=== PATIENT | female | born 1950 | race Caucasian/White ===

== ENCOUNTER 2020-05-14 21:31 | Observation (INO) | payer MEDICARE ==
[~2020-05-14] VITALS: Ht 165.1 cm; Wt 94.8 kg
[2020-05-14] MEDS ORDERED: PRAVACHOL20 MG PO (21:48)
[2020-05-14] MEDS ORDERED: ZOLOFT50 MG PO (21:48)
[2020-05-14] MEDS ORDERED: LISINOPRIL10 MG PO (21:48)
[2020-05-14] MEDS ORDERED: ASPIRIN81 MG PO (21:48)
[2020-05-14] MEDS ORDERED: SYMBICORT 16010.2 GM (21:48)
[2020-05-14] MEDS ORDERED: ALBUTEROL0.63 MG/3 (21:48)
[2020-05-14] MEDS ORDERED: CILOSTAZOL50 MG PO (21:48)
[2020-05-14] MEDS ORDERED: CLOPIDOGREL75 MG PO (21:48)
[2020-05-14] MEDS ORDERED: CEFEPIME 1GM/NS 0.9% 50 ML 50 ML IV STA (21:53)
[2020-05-14] MEDS ORDERED: SODIUM CHLORIDE 0.9% 1000ML 1,000 ML IV STA ×2 (21:53→23:34)
[2020-05-14 21:59] LABS: BASOPHILS % 0.2 % (0.0-1.0); EOSINOPHILS % 0.1 % (0.0-6.0); HEMATOCRIT 42.3 % (34.2-44.1); HEMOGLOBIN 13.3 g/dL (12.0-16.0); LYMPHOCYTES # (AUTO) 1.5 (1.0-3.2); LYMPHOCYTES % 8.1 % (18.0-39.1); MEAN CORPUSCULAR HEMOGLOBIN 28.2 pg (28-32); MEAN CORPUSCULAR HGB CONC 31.4 g/dL (31-35); MEAN CORPUSCULAR VOLUME 89.8 fL (81-99); MONOCYTES # (AUTO) 0.9 (0.2-0.8); MONOCYTES % 4.9 % (4.4-11.3); NEUTROPHILS # (AUTO) 16.1 (2.1-6.9); NEUTROPHILS % 86.2 % (38.7-80.0); PLATELET COUNT 433 x10e3/uL (140-360); RED BLOOD COUNT 4.71 x10e6/uL (3.6-5.1); RED CELL DISTRIBUTION WIDTH 14.6 % (11.7-14.4)
[2020-05-14] MEDS ORDERED: ASPIRIN 81 MG CHEW TAB PO ONE (22:00)
[2020-05-14 22:01] LABS: BILIRUBIN,URINE SMALL (NEGATIVE); CLARITY,URINE SL CLOUDY (CLEAR); COLOR,URINE YELLOW (YELLOW); KETONES,URINE TRACE (NEGATIVE); LEUKOCYTE ESTERASE ,URINE NEGATIVE (NEGATIVE); NITRITE,URINE NEGATIVE (NEGATIVE); PROTEIN,URINE DIPSTICK NEGATIVE (NEGATIVE); URINE UROBILINOGEN 0.2 mg/dL (0.2 - 1)
[2020-05-14 22:12] LABS: AMORPHOUS SEDIMENT,URINE FEW (FEW); BACTERIA,URINE FEW /HPF; EPITHELIAL CELLS,URINE MODERATE /LPF; RBC,URINE 0-5 /HPF (0-5); WBC,URINE (MAN) 0-5 /HPF (0-5)
[2020-05-14] MEDS ORDERED: ONDANSETRON HCL INJ 2MG/ML 2ML 2 MG/ML VIAL IV STA (22:12)
[2020-05-14] MEDS ORDERED: MORPHINE SULFATE INJ 4 MG/ML INJ 1ML IV ONE (22:15)
[2020-05-14 22:19] LABS: ALANINE AMINOTRANSFERASE 13 IU/L (0-55); ALBUMIN 3.9 g/dL (3.5-5.0); ALBUMIN/GLOBULIN RATIO 1.1 (0.8-2.0); ALKALINE PHOSPHATASE 97 IU/L (40-150); ANION GAP 16.9 mmol/L (8-16); BLOOD UREA NITROGEN 12 mg/dL (7-26); BUN/CREATININE RATIO 16 (6-25); CALCIUM 9.6 mg/dL (8.4-10.2); CARBON DIOXIDE 24 mmol/L (22-29); CHLORIDE 102 mmol/L (98-107); CREATINE KINASE 58 IU/L (29-168); CREATININE, SERUM 0.75 mg/dL (0.57-1.11); EST GLOMERULAR FILTRATION RATE > 60 ML/MIN (60-); GLUCOSE 140 mg/dL (74-118); POTASSIUM 3.9 mmol/L (3.5-5.1); SODIUM 139 mmol/L (136-145)
--- NOTE | 2020-05-14 22:37 | Emergency Department Note ---
History of Present Illnes History of Present Illness Chief Complaint: Sepsis History of Present Illness This is a 69 year old female arrived to the ED with left lower quadrant abdominal pain. Historian: Patient Arrival Mode: Car Onset (how long ago): day(s) Onset quality: sudden Duration (how long): day(s) Timing of current episode: constant Progression: worsening Chronicity: new Past Medical/Family History Physician Review I have reviewed the patient's past medical and family history. Any updates have been documented here. Past Medical History Recent Fever: No Clinical Suspicion of Infectio: No New/Unexplained Change in Ment: No Past Medical History: Hypertension, COPD, Hyperlipedemia, DVT/PE Other Medical History: DVT IN RT GREATER TOE Past Surgical History: Hysterectomy Review of Systems Review of Systems Constitutional: Reports no symptoms EENTM: Reports no symptoms Cardiovascular: Reports no symptoms Respiratory: Reports no symptoms Gastrointestinal: Reports as per HPI Genitourinary: Reports no symptoms Musculoskeletal: Reports no symptoms Integumentary: Reports no symptoms Neurological: Reports no symptoms Psychological: Reports no symptoms Endocrine: Reports no symptoms Hematological/Lymphatic: Reports no symptoms Physical Exam Related Data Allergies: Coded Allergies: codeine (Verified Allergy, Unknown, RASH, 05/14/20) pentazocine (Verified Allergy, Unknown, 05/14/20) Triage Vital Signs Vital Signs Date Time Temp Pulse Resp B/P (MAP) Pulse Ox O2 Delivery O2 Flow Rate FiO2 05/14/20 21:36 98.3 119 22 162/79 97 Room Air Vital signs reviewed: Yes Physical Exam CONSTITUTIONAL Constitutional: Present well-developed, Present well-nourished HENT HENT: Present normocephalic, Present atraumatic, Present oropharynx clear/moist, Present nose normal HENT L/R: Present left ext ear normal, Present right ext ear normal EYES Eyes: Reports PERRL, Reports conjunctivae normal NECK Neck: Present ROM normal PULMONARY Pulmonary: Present effort normal, Present breath sounds normal CARDIOVASCULAR Cardiovascular: Present regular rhythm, Present heart sounds normal, Present capillary refill normal, Present normal rate GASTROINTESTINAL Abdominal: Present soft, Present bowel sounds normal, Present tender GENITOURINARY Genitourinary: Present exam deferred SKIN Skin: Present warm, Present dry MUSCULOSKELETAL Musculoskeletal: Present ROM normal NEUROLOGICAL Neurological: Present alert, Present oriented x 3, Present no gross motor or sensory deficits PSYCHOLOGICAL Psychological: Present mood/affect normal, Present judgement normal Results Laboratory Result Diagram: 05/14/20213905/14/202139 Laboratory Laboratory Tests Test 05/14/20 21:40 White Blood Count 18.68 x10e3/uL (4.8-10.8) Red Blood Count 4.71 x10e6/uL (3.6-5.1) Hemoglobin 13.3 g/dL (12.0-16.0) Hematocrit 42.3 % (34.2-44.1) Mean Corpuscular Volume 89.8 fL (81-99) Mean Corpuscular Hemoglobin 28.2 pg (28-32) Mean Corpuscular Hemoglobin Concent 31.4 g/dL (31-35) Red Cell Distribution Width 14.6 % (11.7-14.4) Platelet Count 433 x10e3/uL (140-360) Neutrophils (%) (Auto) 86.2 % (38.7-80.0) Lymphocytes (%) (Auto) 8.1 % (18.0-39.1) Monocytes (%) (Auto) 4.9 % (4.4-11.3) Eosinophils (%) (Auto) 0.1 % (0.0-6.0) Basophils (%) (Auto) 0.2 % (0.0-1.0) Neutrophils # (Auto) 16.1 (2.1-6.9) Lymphocytes # (Auto) 1.5 (1.0-3.2) Monocytes # (Auto) 0.9 (0.2-0.8) Eosinophils # (Auto) 0.0 (0.0-0.4) Basophils # (Auto) 0.0 (0.0-0.1) Absolute Immature Granulocyte (auto 0.09 x10e3/uL (0-0.1) Urine Color Yellow (YELLOW) Urine Clarity Sl cloudy (CLEAR) Urine pH 5 (5 - 7) Urine Specific Amity 1.030 (1.010-1.025) Urine Protein Negative (NEGATIVE) Urine Glucose (UA) Negative (NEGATIVE) Urine Ketones Trace (NEGATIVE) Urine Blood Trace (NEGATIVE) Urine Nitrite Negative (NEGATIVE) Urine Bilirubin Small (NEGATIVE) Urine Urobilinogen 0.2 mg/dL (0.2 - 1) Urine Leukocyte Esterase Negative (NEGATIVE) Urine RBC 0-5 /HPF (0-5) Urine WBC 0-5 /HPF (0-5) Urine Epithelial Cells Moderate /LPF (NONE) Urine Amorphous Sediment Few (FEW) Urine Bacteria Few /HPF (NONE) Sodium Level 139 mmol/L (136-145) Potassium Level 3.9 mmol/L (3.5-5.1) Chloride Level 102 mmol/L (98-107) Carbon Dioxide Level 24 mmol/L (22-29) Anion Gap 16.9 mmol/L (8-16) Blood Urea Nitrogen 12 mg/dL (7-26) Creatinine 0.75 mg/dL (0.57-1.11) Estimat Glomerular Filtration Rate > 60 ML/MIN (60-) BUN/Creatinine Ratio 16 (6-25) Glucose Level 140 mg/dL (74-118) Lactic Acid Level 1.3 mmol/L (0.5-2.0) Calcium Level 9.6 mg/dL (8.4-10.2) Total Bilirubin 0.4 mg/dL (0.2-1.2) Aspartate Amino Transf (AST/SGOT) 10 IU/L (5-34) Alanine Aminotransferase (ALT/SGPT) 13 IU/L (0-55) Alkaline Phosphatase 97 IU/L (40-150) Creatine Kinase 58 IU/L (29-168) Creatine Kinase MB 1.10 ng/mL (0-5.0) Troponin I < 0.001 ng/mL (0-0.300) Total Protein 7.6 g/dL (6.5-8.1) Albumin 3.9 g/dL (3.5-5.0) Globulin 3.7 g/dL (2.3-3.5) Albumin/Globulin Ratio 1.1 (0.8-2.0) Lipase 16 U/L (8-78) Lab results reviewed: Yes Imaging Imaging results reviewed: Yes Impressions IMPRESSION: Acute appendicitis. No evidence of perforation or abscess formation. Findings discussed with Dr. Wooten at 11:13 PM, on 05/14/2020. Signed by: Dr. Omar Butler MD on 05/14/2020 11:14 PM Assessment & Plan Medical Decision Making MDM 61-year-old female arrived to the ED with left lower quadrant abdominal pain radiating to the right side. Elevated wbc's noted, patient given doses cefepime in the ED. Patient CT findings consistent with acute appendicitis. Dr. Luiz Maravilla informed and patient was admitted to the hospital for further workup and management. Patient was kept nothing by mouth and 1 doses cefepime given pr ior to admission. Assessment & Plan Final Impression: (1) Acute appendicitis Depart Disposition: ADMITTED Last Vital Signs Date Time Temp Pulse Resp B/P (MAP) Pulse Ox O2 Delivery O2 Flow Rate FiO2 05/14/20 21:52 107 22 168/79 98 Room Air 05/14/20 21:36 98.3 Home Meds Reported Medications Albuterol Sulfate (ALBUTEROL SULFATE) 0.63 Mg/3 Ml Vial.neb 05/14/20 Budesonide/Formoterol Fumarate (SYMBICORT 160-4.5 MCG INHALER) 10.2 Gm Hfa.aer.ad 05/14/20 Pravastatin Sodium (PRAVACHOL) 20 Mg Tablet, 20 MG PO HS, TAB 05/14/20 Aspirin (ASPIRIN) 81 Mg Tab.chew, 81 MG PO DAILY 05/14/20 Cilostazol (CILOSTAZOL) 50 Mg Tablet, 50 MG PO BID, TAB 05/14/20 Sertraline Hcl (ZOLOFT) 50 Mg Tablet, 25 MG PO DAILY, #30 TAB 05/14/20 Lisinopril (LISINOPRIL) 10 Mg Tablet, 10 MG PO DAILY, #30 TAB 05/14/20 Clopidogrel Bisulfate (CLOPIDOGREL) 75 Mg Tablet, 75 MG PO DAILY, #30 TAB 05/14/20 Medications in the ED Aspirin 81 mg PRN ONCE PO ; Start 05/14/20 at 22:00; Stop 05/14/20 at 22:01; Status DC Sodium Chloride 1,000 ml @ 0 mls/hr Q0M STAT IV Last administered on 05/14/20at 22:05; Admin Dose 999 MLS/HR; Start 05/14/20 at 21:53; Stop 05/14/20 at 21:58; Status DC Cefepime HCl 50 ml @ 100 mls/hr Q24H STAT IV Last administered on 05/14/20at 22:05; Admin Dose 100 MLS/HR; Start 05/14/20 at 21:53; Stop 05/14/20 at 22:22; Status DC Ondansetron HCl 4 mg NOW STAT IV ; Start 10/15/20 at 22:12; Stop 05/14/20 at 22:14; Status DC Morphine Sulfate 4 mg ONCE ONCE IV ; Start 05/14/20 at 22:15; Stop 05/14/20 at 22:16; Status DC JONNY WOOTEN DO May 14, 2020 22:37
[2020-05-14] MEDS ORDERED: SODIUM CHLORIDE 0.9% 50ML 50 ML ONE (22:55)
[2020-05-14] MEDS ORDERED: IOPAMIDOL 370 MG/ML 200 ML INFUS..BTL INJ ONE (22:55)
--- NOTE | 2020-05-14 23:17 | Diagnostic Imaging Report ---
EXAM: CT Abdomen and Pelvis WITH contrast INDICATION: ^Y ^ABD PAIN ^20200514 ^[id number] COMPARISON: None. TECHNIQUE: Abdomen and pelvis were scanned utilizing a multidetector helical scanner from the lung base to the pubic symphysis after administration of IV contrast. Coronal and sagittal reformations were obtained. Dose modulation, iterative reconstruction, and/or weight based adjustment of the mA/kV was utilized to reduce the radiation dose to as low as reasonably achievable. Routine protocol was performed. Scan was performed when during portal venous phase. IV CONTRAST: 100 mL of Isovue-370 ORAL CONTRAST: None COMPLICATIONS: None RADIATION DOSE: Total DLP: 808.69 mGy*cm Estimated effective dose: (DLP x 0.015 x size factor) mSv CTDIvol has been reviewed. It is below the limits set by the Radiation Protocol Committee (RPC). FINDINGS: LINES and TUBES: None. LOWER THORAX: Unremarkable HEPATOBILIARY: No focal hepatic lesions. No biliary ductal dilation. GALLBLADDER: No radio-opaque stones or sludge. No wall thickening. SPLEEN: No splenomegaly. PANCREAS: No focal masses or ductal dilatation. ADRENALS: No adrenal nodules KIDNEYS/URETERS: Kidneys enhance symmetrically. No hydronephrosis. No cystic or solid mass lesions. No stones. GI TRACT: No abnormal distention, wall thickening, or evidence of bowel obstruction. Appendix is distended up to 1.5 cm, demonstrating mild surrounding inflammation. PELVIC ORGANS/BLADDER: Unremarkable. LYMPH NODES: No lymphadenopathy. VESSELS: There is moderate atherosclerotic disease in the aorta and major arterial branches. PERITONEUM / RETROPERITONEUM: No free air or fluid. BONES: Minimal retrolisthesis of L5 in relation to L4. SOFT TISSUES: Unremarkable. IMPRESSION: Acute appendicitis. No evidence of perforation or abscess formation. Findings discussed with Dr. Sanchez at 11:13 PM, on 05/14/2020. Signed by: Dr. Omar Butler MD on 05/14/2020 11:14 PM
[2020-05-14] MEDS ORDERED: ONDANSETRON HCL INJ 2MG/ML 2ML 2 MG/ML VIAL IV PRN (23:30)
--- OUTSIDE RECORDS SUMMARY | 2020-05-14 23:38 | XMS REPORT | Continuity of Care Document ---
Author Author [facility] t Organization [facility] Address [address] [place] [address] [place] [phone] Phone Unavailable Care Team Providers Care Mini Shifter Name Role Phone Kriss WOOTEN Unavailable Problems This patient has no known problems. Allergies, Adverse Reactions, Alerts This patient has no known allergies or adverse reactions. Medications This patient has no known medications. Procedures This patient has no known procedures. Results Test Description Test Time Test Comments Results Result Comments Source CT ABDOMEN/PELVIS W 2020-05-14 23:03:00 [facility] 1950 Sex: F [facility] [address] [place] [address] Patient Name: JAZMINE DONNELLY MR #: [id number] : 1950 Age/Sex: 69/F Req #: [id number] Adm Physician: Ordered by: JONNY WOOTEN DO Report #: [id number] Location: ER Room/Bed: Procedure: [id number] CT/CT ABDOMEN/PELVIS W Exam Date: 05/14/20 Exam Time: 2244 REPORT STATUS: Signed EXAM: CT Abdomen and Pelvis WITH contrast INDICATION: Y ABD PAIN 20200514 COMPARISON: None. TECHNIQUE: Abdomen and pelvis were scanned utilizing a multidetector helical scanner from the lung base to the pubic symphysis after administration of IV contrast. Coronal and sagittal reformations were obtained. Dose modulation, iterative reconstruction, and/or weight based adjustment of the mA/kV was utilized to reduce the radiation dose to as low as reasonably achievable. Routine protocol was performed. Scan was performed when during portal venous phase. IV CONTRAST: 100 mL of Isovue-370 ORAL CONTRAST: None COMPLICATIONS: None RADIATION DOSE: Total DLP: 808.69 mGy*cm Estimated effective dose: (DLP x 0.015 x size factor) mSv CTDIvol has been reviewed. It is below the limits set by the Radiation Protocol Committee (RPC). FINDINGS: LINES and TUBES: None. LOWER THORAX: Unremarkable HEPATOBILIARY: No focal hepatic lesions. No biliary ductal dilation. GALLBLADDER: No radio-opaque stones or sludge. No wall thickening. SPLEEN: No splenomegaly. PANCREAS: No focal masses or ductal dilatation. ADRENALS: No adrenal nodules KIDNEYS/URETERS: Kidneys enhance symmetrically. No hydronephrosis. No cystic or solid mass lesions. No stones. GI TRACT: No abnormal distention, wall thickening, or evidence of bowel obstruction. Appendix is distended up to 1.5 cm, demonstrating mild surrounding inflammation. PELVIC ORGANS/BLADDER: Unremarkable. LYMPH NODES: No lymphadenopathy. VESSELS: There is moderate atherosclerotic disease in the aorta and major arterial branches. PERITONEUM / RETROPERITONEUM: No free air or fluid. BONES: Minimal retrolisthesis of L5 in relation to L4. SOFT TISSUES: Unremarkable. IMPRESSION: Acute appendicitis. No evidence of perforation or abscess formation. Findings discussed with Dr. Wooten at 11:13 PM, on 05/14/2020. Signed by: Dr. Omar Harmon MD on 05/14/2020 11:14 PM Dictated By: OMAR HARMON MD 13 Transcribed By: EDA on 05/14/202313 COPY TO: JONNY WOOTEN,
[2020-05-15] VITALS (9 sets, daily range): BP systolic 131–142; BP diastolic 58–73
[2020-05-15] MEDS ORDERED: SODIUM CHLORIDE 0.9% 1000ML 1,000 ML IV SCH (00:30)
--- NOTE | 2020-05-15 01:04 | NUR ---
PATIENT ARRIVED TO THE FLOOR VIA WHEELCHAIR, AOX4, GAIT STEADY, ABLE TO VERBALIZE NEEDS, ORIENTED TO ROOM STAFF AND HOSPITAL POLICIES, ADMISSION ASSESSMENT COMPLETED, PT DENIES PAIN IN ABDOMEN LLQ PRESENTLY, NS 125CC/HR STARTED ORDERED, PATIENT TO REMAIN NPO FOR POSSIBLE PROCEDURE, ER STATED THEY CALLED CONSULT FOR MD DALY
--- NOTE | 2020-05-15 07:13 | NUR ---
MD Nancy KAUFFMAN ROUNDING ON PATIENT DURING SHIFT CHANGE, ORDERS GIVEN FOR EKG STAT, PREP PATIENT FOR SURGICAL PROCEDURE THIS MORNING WITHIN NEXT COUPLE HOURS, ENDORSED TO DAYSHIFT TO OBTAIN CONSENT FOR LAPAROSCOPIC APPENDECTOMY WITH POSSIBLE OPEN APPENDECTOMY, PATIENT ALREADY GIVEN SKIN PREP WITH CHLORHEXIDINE, NEW SHEETS, SOCK AND GOWN GIVEN; PATIENT REMAINED NPO AFTER MIDNIGHT FOR POSSIBLE PROCEDURE IN THE AM
[2020-05-15 08:05] LABS: BASOPHILS % 0.3 % (0.0-1.0); EOSINOPHILS % 0.2 % (0.0-6.0); HEMATOCRIT 38.8 % (34.2-44.1); HEMOGLOBIN 12.2 g/dL (12.0-16.0); LYMPHOCYTES # (AUTO) 1.7 (1.0-3.2); LYMPHOCYTES % 13.9 % (18.0-39.1); MEAN CORPUSCULAR HEMOGLOBIN 28.4 pg (28-32); MEAN CORPUSCULAR HGB CONC 31.4 g/dL (31-35); MEAN CORPUSCULAR VOLUME 90.4 fL (81-99); MONOCYTES # (AUTO) 1.1 (0.2-0.8); MONOCYTES % 9.1 % (4.4-11.3); NEUTROPHILS # (AUTO) 9.5 (2.1-6.9); NEUTROPHILS % 76.1 % (38.7-80.0); PLATELET COUNT 361 x10e3/uL (140-360); RED BLOOD COUNT 4.29 x10e6/uL (3.6-5.1); RED CELL DISTRIBUTION WIDTH 14.7 % (11.7-14.4)
[2020-05-15 08:32] LABS: ALANINE AMINOTRANSFERASE 11 IU/L (0-55); ALBUMIN 3.4 g/dL (3.5-5.0); ALKALINE PHOSPHATASE 75 IU/L (40-150); ANION GAP 12.7 mmol/L (8-16); BLOOD UREA NITROGEN 10 mg/dL (7-26); BUN/CREATININE RATIO 14 (6-25); CALCIUM 8.9 mg/dL (8.4-10.2); CARBON DIOXIDE 26 mmol/L (22-29); CHLORIDE 106 mmol/L (98-107); CREATININE, SERUM 0.69 mg/dL (0.57-1.11); EST GLOMERULAR FILTRATION RATE > 60 ML/MIN (60-); GLUCOSE 118 mg/dL (74-118); POTASSIUM 3.7 mmol/L (3.5-5.1); SODIUM 141 mmol/L (136-145)
[2020-05-15 08:51] LABS: CREATINE KINASE 79 IU/L (29-168)
[2020-05-15] MEDS ORDERED: BUPIVACAINE 0.25% 30ML SDV INJ ONE (09:37)
[2020-05-15] MEDS ORDERED: ALBUTEROL SULF 0.083% NEB SOLN 3 ML NEB ONE (12:31)
[2020-05-15] MEDS ORDERED: FENTANYL CITRATE/PF 100MCG/2 ML INJ ONE (12:38)
[2020-05-15] MEDS ORDERED: MIDAZOLAM HCL 2 MG/2 ML VIAL ONE (12:38)
[2020-05-15] MEDS ORDERED: ROCURONIUM BROMIDE 10 MG/ML 5ML VIAL IV ONE (12:41)
[2020-05-15] MEDS ORDERED: SEVOFLURANE INHAL SOLN 250 ML PEN BTL ONE (12:41)
[2020-05-15] MEDS ORDERED: NEOSTIGMINE 1 MG/ML 10ML VIAL ONE (12:41)
[2020-05-15] MEDS ORDERED: PROPOFOL IV EMULSION 10 MG/ML 20 ML VIAL ONE (12:41)
[2020-05-15] MEDS ORDERED: LIDOCAINE HCL 2% LOCAL INJ 5 ML SDV VIAL INJ ONE (12:41)
[2020-05-15] MEDS ORDERED: DEXAMETHASONE SOD PHOS INJ 4 MG/ML VIAL ONE (12:41)
[2020-05-15] MEDS ORDERED: ONDANSETRON HCL INJ 2MG/ML 2ML 2 MG/ML VIAL ONE (12:41)
[2020-05-15] MEDS ORDERED: GLYCOPYRROLATE INJ 0.2 MG/ML VIAL ONE (12:41)
--- NOTE | 2020-05-15 12:55 | Operative Report ---
DATE OF PROCEDURE: 05/15/2020 SURGEON: Thanh Maravilla MD PREOPERATIVE DIAGNOSES: Acute appendicitis, morbid obesity, multiple comorbidities. POSTOPERATIVE DIAGNOSES: Acute appendicitis, morbid obesity, multiple comorbidities. PROCEDURES PERFORMED: Laparoscopic appendectomy. INTELLIGENCE OFFICER BASIC: ARUN Campbell. ESTIMATED BLOOD LOSS: Minimal. DRAINS: None. COMPLICATIONS: None. INDICATION AND FINDINGS: The patient is a 69-year-old female, morbidly obese with multiple comorbidities, admitted through the emergency room complaining of abdominal pain since the morning prior to admission. CT scan revealed changes consistent with acute appendicitis. INTRAOPERATIVE FINDINGS: Acute appendicitis. DESCRIPTION OF PROCEDURE: With the patient lying on the operative table in the supine position after administration of general anesthesia, she was prepped and draped for laparoscopic cholecystectomy. The procedure was begun by establishing the pneumoperitoneum in the umbilical site, insufflated to 15 mm of pressure after the saline drop test was performed. After we desufflated the pneumoperitoneum, an 11/12 trocar was placed in that location and then we put a 5 mm suprapubic, 5 mm right upper quadrant and a 5 mm right upper near midline trocar to expose the operative field. We performed laparoscopy, identified the appendix, mobilized the appendix with grasping forceps through the different 5 mm trocars until we identify the base of the appendix. The appendectomy was performed retrogradely. We made a rent in the base of the appendix at the junction with the cecum and then fired the Endo-MELAI stapler with a blue load. We had to place a 2nd application of the stapler to encompass the entire cecal appendiceal junction and then we continued the dissection. We identified the mesoappendix and fired them with a white load stapler several times. We also applied a 5 and a 10 mm staplers to the mesoappendix obtaining absolute hemostasis. Of note, it is the fact that this patient was on Plavix. After we did that, we inspected the operative field and there was no evidence of bleeding. There was no evidence of stool or sulcus entericus in the operative field. We then extracted the appendix through the 11/12 trocar placed in an endobag and removed through the umbilical port site. After the sponge and instrument count were pronounced correct, we closed the wound using a series of interrupted 0 Vicryl stitches, also closed an umbilical hernia through which we had placed the 11/12 trocar. The subcutaneous tissues in that location were approximated using 0 chromic and 2-0 Vicryl and then the skin of all the ports was closed using 3-0 silk except for the right upper quadrant trocar that was closed with 0 Vicryl. Local anesthesia was given 0.25% Marcaine with epinephrine. The patient tolerated the procedure well and was taken to recovery room in stable condition. MD BLANQUITA Sanchez/SETH /[id number]
[2020-05-15] MEDS: ALBUTEROL SULF 0.083% NEB SOLN 3 ML NEB NEB SCH ×2 (13:38→18:30)
[2020-05-15] MEDS: SODIUM CHLORIDE 0.9% 1000ML 1,000 ML IV SCH ×2 (16:30→23:57)
[2020-05-15 16:54] LABS: CREATINE KINASE 98 IU/L (29-168)
[2020-05-15] MEDS: CEFTRIAXONE SOD 2 GM/NS 100 ML 100 ML IV SCH (18:25)
--- NOTE | 2020-05-15 18:32 | NUR ---
CARVALHO D/C'D PT TOLERATED WELL. PATIENT IS DUE TO VOID.
[2020-05-15] MEDS: BUDESONIDE/FORMOTEROL 160/4.5MCG INHALER INH SCH (18:39)
--- NOTE | 2020-05-15 19:30 | NUR ---
PATIENT ABLE TO VOID S/P DC OF CARVALHO W/O COMPLICATION, AOX4, WALKS WITH WALKER ASSISTED, S/P LAP APPY, C/O MODERATE PAIN LEVEL AT THIS TIME, AB BINDER IN PLACE, CALL LIGHT WITHIN REACH, PT REQUESTING TO SLEEP IN CHAIR , IV HYDRATION CONTINUED
[2020-05-15] MEDS: METRONIDAZOLE 500MG/NS 100ML 100 ML IV SCH (20:27)
[2020-05-15] MEDS: PRAVASTATIN 20 MG TAB PO SCH (20:27)
[2020-05-16] VITALS (11 sets, daily range): BP systolic 115–142; BP diastolic 54–75
[2020-05-16] MEDS: ALBUTEROL SULF 0.083% NEB SOLN 3 ML NEB NEB SCH ×4 (01:00→20:10)
[2020-05-16] MEDS: MORPHINE SULFATE INJ 4 MG/ML INJ 1ML IV PRN ×3 (01:13→23:12)
[2020-05-16] MEDS: ONDANSETRON HCL INJ 2MG/ML 2ML 2 MG/ML VIAL IV PRN ×3 (01:13→23:12)
[2020-05-16] MEDS: METRONIDAZOLE 500MG/NS 100ML 100 ML IV SCH ×3 (04:00→20:00)
[2020-05-16 05:41] LABS: BASOPHILS % 0.2 % (0.0-1.0); HEMATOCRIT 35.9 % (34.2-44.1); HEMOGLOBIN 11.4 g/dL (12.0-16.0); LYMPHOCYTES # (AUTO) 2.2 (1.0-3.2); LYMPHOCYTES % 14.6 % (18.0-39.1); MEAN CORPUSCULAR HEMOGLOBIN 29.7 pg (28-32); MEAN CORPUSCULAR HGB CONC 31.8 g/dL (31-35); MEAN CORPUSCULAR VOLUME 93.5 fL (81-99); MONOCYTES # (AUTO) 1.4 (0.2-0.8); MONOCYTES % 9.6 % (4.4-11.3); NEUTROPHILS # (AUTO) 11.2 (2.1-6.9); NEUTROPHILS % 75.3 % (38.7-80.0); PLATELET COUNT 361 x10e3/uL (140-360); RED BLOOD COUNT 3.84 x10e6/uL (3.6-5.1)
[2020-05-16 05:58] LABS: ANION GAP 15.8 mmol/L (8-16); BLOOD UREA NITROGEN 8 mg/dL (7-26); BUN/CREATININE RATIO 11 (6-25); CARBON DIOXIDE 24 mmol/L (22-29); CHLORIDE 106 mmol/L (98-107); EST GLOMERULAR FILTRATION RATE > 60 ML/MIN (60-); GLUCOSE 133 mg/dL (74-118); POTASSIUM 3.8 mmol/L (3.5-5.1); SODIUM 142 mmol/L (136-145)
[2020-05-16] MEDS: BUDESONIDE/FORMOTEROL 160/4.5MCG INHALER INH SCH ×2 (07:00→20:00)
[2020-05-16] MEDS: SERTRALINE HCL 50 MG TAB PO SCH (08:33)
[2020-05-16] MEDS: LISINOPRIL 10 MG TAB PO SCH (08:33)
[2020-05-16] MEDS ORDERED: ASPIRIN 81 MG CHEW TAB PO SCH (09:00)
[2020-05-16] MEDS: SODIUM CHLORIDE 0.9% 1000ML 1,000 ML IV SCH (09:49)
--- NOTE | 2020-05-16 15:49 | History and Physical ---
PRIMARY CARE DOCTOR: Dr. Darline Bermudez. CHIEF COMPLAINT: Abdominal pain. HISTORY OF PRESENT ILLNESS: This is a 69-year-old woman, who came in with abdominal pain, also some nausea. No vomiting, no diarrhea, no fever. The patient denies to have chest pain, shortness of breath. The patient does smoke every day. In the emergency room the patient was found to have acute appendicitis on CT scan. PAST MEDICAL AND SURGICAL HISTORY: 1. Hypertension. 2. COPD. 3. Hyperlipidemia. 4. Right leg DVT. 5. Previous hysterectomy. MEDICATIONS: Please see medication reconciliation form. ALLERGIES: CODEINE. FAMILY HISTORY: Significant for heart disease and cancer. SOCIAL HISTORY: She smokes. REVIEW OF SYSTEMS: A 10-point review of system obtained and nothing else is significant other than what is stated in the HPI. PHYSICAL EXAMINATION: VITAL SIGNS: Temperature 98.0, pulse 78, respiratory rate 16, blood pressure 137/68. GENERAL: No acute distress. SKIN: No rash. HEENT: Anicteric. Oropharynx is dry. LUNGS: Clear. HEART: Regular rate and rhythm. Normal S1, S2. ABDOMEN: Soft, nondistended. NEUROLOGIC: Alert and oriented x3. PSYCH: Cranial nerves 2 through 12 grossly intact. PSYCHIATRIC: No hallucination. MUSCULOSKELETAL: Painless range of motion. LABORATORY DATA: White count initially was 18, now down to 12, hemoglobin 12, platelet count 361. Creatinine 0.7. Troponins are negative x3. ASSESSMENT AND PLAN: 1. Acute appendicitis. The patient just came back for laparoscopic appendectomy. Clear liquid diet per surgeon. We will continue IV antibiotics per surgeon. The patient will also be on IV morphine as needed and IV fluids. 2. Chronic obstructive pulmonary disease, still smoking. Smoking cessation advised, however, the patient does not want a nicotine patch right now. 3. Hypertension. We will continue her lisinopril. 4. Gastrointestinal and deep venous thrombosis prophylaxis. 5. Chemical deep venous thrombosis prophylaxis if okay with the surgeon. Dictated by Tal Christie MD MD SELENA LooL/MODL /[id number] cc: [facility]
[2020-05-16] MEDS: CEFTRIAXONE SOD 2 GM/NS 100 ML 100 ML IV SCH (17:36)
--- NOTE | 2020-05-16 19:20 | NUR ---
SBAR REPORT RECEIVED AT BEDSIDE, PATIENT SEEN SITTING IN CHAIR AOX4, ABLE TO MAKE NEEDS KNOWN, SKIN WARM DRY, S/P APPENDECTOMY, SURGICAL WOUND LLQ ABDOMEN COVERED WITH DRESSING NO DRAINAGE NOTED, PATIENT STATES PAIN LEVEL TOLERABLE, PLAN OF CARE DISCUSSED WITH PATIENT, CALL LIGHT WITHIN REACH
--- NOTE | 2020-05-16 19:35 | Progress Note ---
DATE: 05/16/2020 SUBJECTIVE: Tolerating clear liquid diet. OBJECTIVE: VITAL SIGNS: Temperature 98.2, pulse is 76, respiratory rate 20, and blood pressure 141/61. GENERAL: No acute distress. SKIN: No rash. LUNGS: Clear. HEART: Regular rate and rhythm. Normal S1 and S2. GI: Abdomen is soft and nondistended. NEUROLOGIC: Alert and oriented x3. PSYCHIATRIC: No hallucination. LABORATORY DATA: White count 15, hemoglobin 11, and platelet count 361. Creatinine 0.7. ASSESSMENT AND PLAN: 1. Acute appendicitis, postop day #1 for laparoscopic appendectomy. The patient's diet advanced to full liquid per the surgeon. We will continue IV antibiotics per the surgeon. Possibly, the patient can go home tomorrow. 2. Chronic obstructive pulmonary disease, stable. 3. Hypertension, acceptable. 4. Gastrointestinal and deep venous thrombosis prophylaxis. Chemical deep venous thrombosis prophylaxis when okay with the surgeon. MD JASVIR Loo/SETH /[id number]
--- NOTE | 2020-05-16 20:00 | NUR ---
HOURLY ROUNDING COMPLETED, PM MEDICATION, IV ANTIBIOTIC THERAPY CONTINUED, PT IV SITE INTACT NO REDNESS SWELLING NOTED, FLUSHES W/O DIFFICULTY, ALL PERSONAL BELONGINGS WITHIN REACH, SKIN WARM DRY INTACT, VSS, CALL LIGHT WITHIN REACH
[2020-05-16] MEDS: PRAVASTATIN 20 MG TAB PO SCH (21:00)
--- NOTE | 2020-05-16 21:49 | NUR ---
hourly rounding completed, pt assisted to bathroom, able to walk unassist, standby just for safety, patient requesting to sleep in chair, blanket given, comfort measures increased, c/o jitteriness r/t poor food intake during dinner, snacks given, all personal belongings within reach, call light placed in pt lap
[2020-05-17] VITALS: BP 118/56
--- NOTE | 2020-05-17 02:43 | NUR ---
HOURLY ROUNDING WITH FIVE P'S COMPLETED, PT SEEN SLEEPING RESTING NO DISTRESS NOTED, DENIES PAIN, CHECKED POSITION, OFFERED TOILETING DENIED, STATES "SHE IS OKAY, I WOULD LIKE A JELLO", REQUEST CARRIED OUT
[2020-05-17] MEDS: ALBUTEROL SULF 0.083% NEB SOLN 3 ML NEB NEB SCH (02:50)
[2020-05-17] MEDS: METRONIDAZOLE 500MG/NS 100ML 100 ML IV SCH (04:21)
[2020-05-17] MEDS: BUDESONIDE/FORMOTEROL 160/4.5MCG INHALER INH SCH (06:34)
[2020-05-17 07:12] LABS: BASOPHILS % 0.3 % (0.0-1.0); EOSINOPHILS % 0.3 % (0.0-6.0); HEMATOCRIT 35.9 % (34.2-44.1); HEMOGLOBIN 11.1 g/dL (12.0-16.0); LYMPHOCYTES # (AUTO) 1.9 (1.0-3.2); LYMPHOCYTES % 17.7 % (18.0-39.1); MEAN CORPUSCULAR HEMOGLOBIN 28.5 pg (28-32); MEAN CORPUSCULAR HGB CONC 30.9 g/dL (31-35); MEAN CORPUSCULAR VOLUME 92.3 fL (81-99); MONOCYTES # (AUTO) 1.1 (0.2-0.8); MONOCYTES % 9.6 % (4.4-11.3); NEUTROPHILS # (AUTO) 7.8 (2.1-6.9); NEUTROPHILS % 71.7 % (38.7-80.0); PLATELET COUNT 343 x10e3/uL (140-360); RED BLOOD COUNT 3.89 x10e6/uL (3.6-5.1); RED CELL DISTRIBUTION WIDTH 15.1 % (11.7-14.4)
[2020-05-17 07:30] LABS: ANION GAP 12.8 mmol/L (8-16); BLOOD UREA NITROGEN 10 mg/dL (7-26); BUN/CREATININE RATIO 16 (6-25); CALCIUM 8.8 mg/dL (8.4-10.2); CARBON DIOXIDE 27 mmol/L (22-29); CHLORIDE 106 mmol/L (98-107); CREATININE, SERUM 0.64 mg/dL (0.57-1.11); EST GLOMERULAR FILTRATION RATE > 60 ML/MIN (60-); GLUCOSE 120 mg/dL (74-118); POTASSIUM 3.8 mmol/L (3.5-5.1); SODIUM 142 mmol/L (136-145)
[2020-05-17 08:06] VITALS: BP 126/62
[2020-05-17] MEDS: SERTRALINE HCL 50 MG TAB PO SCH (08:44)
[2020-05-17] MEDS: LISINOPRIL 10 MG TAB PO SCH (08:44)
[2020-05-17 09:09] VITALS: BP 126/62
[2020-05-17 11:07] VITALS: BP 151/70
[2020-05-17] MEDS ORDERED: MAGNESIUM HYDROXIDE 30 ML UDC PO ONE (11:07)
[2020-05-17] MEDS: ONDANSETRON HCL INJ 2MG/ML 2ML 2 MG/ML VIAL IV PRN (11:52)
--- NOTE | 2020-05-17 12:15 | NUR ---
Verbal order given by Dr. Nancy Maravilla to give 1 milk of magnesia to patient for bowel movement. Dr. Maravilla stated that patient can go home if having bowel movement. Patients c/o bloating and not having BM after last Monday. Denies passing gas as well. Denies nausea and abdominal pain.
--- NOTE | 2020-05-17 13:15 | NUR ---
Patient reported having bowel movement after milk of magnesia. Denies abdominal discomfort and nausea.
[2020-05-17] MEDS ORDERED: CEFTRIAXONE SOD 2 GM/NS 100 ML 100 ML IV SCH (14:00)
[2020-05-17 15:07] VITALS: BP 130/62
--- NOTE | 2020-05-17 15:07 | NUR ---
Discharge education provided with discharge packet. Prescription given. Verbalized understanding with discharge education. PIV to left AC removed, catheter tip intact, no bleeding noted. Transported via wheelchair to private vehicle with all personal belongings taken.
--- NOTE | 2020-05-18 02:49 | Discharge Summary ---
PRIMARY CARE DOCTOR: Dr. Darline Bermudez. FINAL DIAGNOSIS: Acute appendicitis. SECONDARY DIAGNOSES: 1. Hypertension. 2. Chronic obstructive pulmonary disease. CONSULTANTS: Dr. Nancy Maravilla, General Surgery. PROCEDURE/STUDIES PERFORMED: CT of the abdomen and pelvis and laparoscopic appendectomy. HISTORY: Per dictated H and P. HOSPITAL COURSE: The patient was admitted. The patient underwent IV antibiotics. The patient underwent eventful laparoscopic appendectomy. Her diet was slowly increased per the surgeon. Today is postop day #2. The patient is tolerating p.o. and will be discharged home on Tylenol No. 3 p.r.n. for pain. The patient will follow up with the surgeon in one week and will also follow up with her primary care doctor in one week. The patient was seen and examined today. CONDITION ON DISCHARGE: Improved. DISCHARGE MEDICATIONS: Please see medication reconciliation form. ching MD JASVIR Tomlin/SETH /[id number] cc: [facility]
== END 2020-05-17 15:19 | disposition home or self-care (01) ==
LOC: ER 22:17 → ERHOLD 23:31 → MED/SURG2 05-15 00:29 → INTOOBSV 05-15 11:54 → OBSVTOIN 05-15 11:54
PROVIDERS: ADMIT Internal Medicine; ATTEND Internal Medicine
DX: K35.80 Unspecified acute appendicitis (principal); I10 Essential (primary) hypertension; J44.9 Chronic obstructive pulmonary disease, unspecified; E78.5 Hyperlipidemia, unspecified; Z86.718 Personal history of other venous thrombosis and embolism; Z11.59 Encounter for screening for other viral diseases
CPT/HCPCS: 36415 ×4; 44970; 74177; 80048 ×2; 80053 ×2; 81001; 82550 ×2; 82553 ×2; 83605; 83690; 84484 ×2; 85025 ×4; 87040; 88304; 93005 ×2; 94640 ×4; 94664; 96361 ×3; 99284; C1766; G0378 ×4; J0692; J0696 ×3; J1100; J2001; J2250; J2270 ×2; J2405 ×4; J2704; J2710; J3010; J7030 ×3; Q9967; U0002

== ENCOUNTER 2021-11-11 13:21 | Emergency (ER) | payer MEDICARE ==
[~2021-11-11] VITALS: Ht 165.1 cm; Wt 94.8 kg
[~2021-11-11 13:21] MED LIST: ALBUTEROL0.63 MG/3; ASPIRIN81 MG PO; CILOSTAZOL50 MG PO; CLOPIDOGREL75 MG PO; LISINOPRIL10 MG PO; PRAVACHOL20 MG PO; SYMBICORT 16010.2 GM; ZOLOFT50 MG PO
[2021-11-11 13:55] LABS: BASOPHILS % 0.4 % (0.0-1.0); EOSINOPHILS # (AUTO) 0.1 (0.0-0.4); EOSINOPHILS % 0.8 % (0.0-6.0); HEMATOCRIT 41.6 % (34.2-44.1); HEMOGLOBIN 13.4 g/dL (12.0-16.0); LYMPHOCYTES # (AUTO) 2.1 (1.0-3.2); LYMPHOCYTES % 21.5 % (18.0-39.1); MEAN CORPUSCULAR HEMOGLOBIN 28.5 pg (28-32); MEAN CORPUSCULAR HGB CONC 32.2 g/dL (31-35); MEAN CORPUSCULAR VOLUME 88.5 fL (81-99); MONOCYTES # (AUTO) 0.8 (0.2-0.8); MONOCYTES % 8.1 % (4.4-11.3); NEUTROPHILS # (AUTO) 6.6 (2.1-6.9); PLATELET COUNT 456 x10e3/uL (140-360); RED CELL DISTRIBUTION WIDTH 14.8 % (11.7-14.4)
[2021-11-11 14:09] LABS: INR 0.92; PROTHROMBIN TIME 13.2 seconds (11.9-14.5)
[2021-11-11 14:16] LABS: ALBUMIN 3.4 g/dL (3.5-5.0); ALBUMIN/GLOBULIN RATIO 0.8 (0.8-2.0); CALCIUM 9.3 mg/dL (8.4-10.2); CREATININE, SERUM 0.69 mg/dL (0.57-1.11)
[2021-11-11] MEDS ORDERED: HYDROCODONE/APAP 10MG-325MG TAB PO ONE (15:15)
[2021-11-11] MEDS ORDERED: TRAMADOL HCL 50 MG TAB PO ONE (15:15)
[2021-11-11] MEDS ORDERED: SODIUM CHLORIDE 0.9% 100 ML ONE (16:40)
[2021-11-11] MEDS ORDERED: IOPAMIDOL 370 MG/ML 200 ML INFUS..BTL INJ ONE (16:40)
== END 2021-11-11 18:09 | disposition home or self-care (01) ==
LOC: ER 13:45
DX: M79.604 Pain in right leg (principal); I10 Essential (primary) hypertension; E78.5 Hyperlipidemia, unspecified; F41.9 Anxiety disorder, unspecified; M54.9 Dorsalgia, unspecified; G89.29 Other chronic pain; I73.9 Peripheral vascular disease, unspecified
CPT/HCPCS: 36415; 71260; 80053; 85025; 85379; 85610; 93971; 99283; J7050; Q9967

== ENCOUNTER 2023-05-16 20:13 | Emergency (ER) | payer MEDICARE ==
[~2023-05-16] VITALS: Ht 165.1 cm; Wt 94.8 kg
[2023-05-16] MEDS ORDERED: NAPROSYN500 MG PO (21:53)
[2023-05-16 22:03] VITALS: O2SAT 99
== END 2023-05-16 22:04 | disposition home or self-care (01) ==
LOC: ER 20:25
DX: M25.561 Pain in right knee (principal); M17.11 Unilateral primary osteoarthritis, right knee; I10 Essential (primary) hypertension; E78.5 Hyperlipidemia, unspecified; F41.9 Anxiety disorder, unspecified; M54.9 Dorsalgia, unspecified; G89.29 Other chronic pain
CPT/HCPCS: 99283